=== PATIENT | male | born 1960 | race Native Hawaiian/Other Pacific Islander ===

== ENCOUNTER 2018-02-19 12:23 | Emergency (ER) | payer BC ==
[~2018-02-19] VITALS: Ht 188 cm; Wt 77.1 kg
[2018-02-19 13:51] LABS: PLATELET COUNT 353 K/uL (142-355)
[2018-02-19 14:28] LABS: POTASSIUM 3.9 mmol/L (3.6-5.2)
== END 2018-02-19 16:15 | disposition short-term general hospital (02) ==
LOC: ED 12:23
PROVIDERS: Family Medicine
DX: I62.00 Nontraumatic subdural hemorrhage, unspecified (principal)
CPT/HCPCS: 36415; 80053; 85027; 96374; 96376; 99285; J2175; J2405